=== PATIENT | male | born 1965 | race Caucasian/White ===

== ENCOUNTER → 2019-12-18 | Emergency (ER) | payer SELFPAY ==
--- NOTE | 2019-12-18 14:09 | NUR ---
NO ANSWER AT THIS TIME - PATIENT NOT SEEN IN THE RESTROOM, LOBBY, OR OUTSIDE
--- NOTE | 2019-12-18 14:29 | NUR ---
NO ANSWER FROM PATIENT AT THIS TIME; PATIENT NOT IN RESTROOM, LOBBY, OR OUTSIDE
--- OUTSIDE RECORDS SUMMARY | 2019-12-18 15:14 | XMS REPORT | Continuity of Care Document ---
Author Author [facility] t Organization [facility] Address [address] [place] [address] Phone Unavailable Care Team Providers Care Convalescent Sitter Name Role Phone Unavailable Unavailable Payers Payer Name Policy Type Policy Number Effective Date Expiration Date S ource Problems This patient has no known problems. Allergies, Adverse Reactions, Alerts Allergy Name Allergy Type Status Severity Reaction(s) Onset Date Inacti ve Date Treating Clinician Comments Source penicillin G DA Active SV 2014-08-12 00:00:[address] [facility] Medications This patient has no known medications. Procedures This patient has no known procedures. Results Test Description Test Time Test Comments Results Result Comments Source - XR CHEST 1 V 2019-12-18 14:47:00 Name: MANPREET LINDSAY [facility] : 1965 Age/S:54 /M [address] [facility] Unit#:[id number] Loc: EDDIE Wallsbertha Silvestre x [address] Phys: Jadon Rod MD Dis Date: PHONE #: [phone] Status: PRE ER FAX #: [phone] Exam Date: 12/18/2019 Reason: SOB EXAMS: CPT CODE: [id number] XR CHEST 1 V 06691 HISTORY: Shortness of breath. COMPARISON: None available. Location: [facility]. Diffuse nodular bilateral alveolar infiltrates, greater on the right. No effusion or congestion. Cardiac silhouette is mildly enlarged. IMPRESSION: Diffuse bilateral nodular alveolar infiltrates, greater on the right. at 1447 Reported and signed by: Pedro Ayala M.D. CC: Jadon Rod MD Technologist: Олег Booth RT(R)(CT) Trnscrpt Data: 12/18/2019 (1444) [email or web address] PAGE 1 Signed Report
== END | disposition left against medical advice (07) ==
LOC: ER 15:11
DX: R06.02 Shortness of breath (principal)

== ENCOUNTER 2022-03-20 10:57 | Observation (INO) | payer OTHER ==
[~2022-03-20] VITALS: Ht 190.5 cm; Wt 120.2 kg
[2022-03-20] MEDS ORDERED: ONDANSETRON HCL INJ 2MG/ML 2ML 2 MG/ML VIAL IV STA (11:15)
[2022-03-20] MEDS ORDERED: Morphine 4mg INJECTION 4 MG/ML INJ IV ONE (11:15)
[2022-03-20] MEDS ORDERED: ASPIRIN 81 MG CHEW TAB PO ONE ×2 (11:15→12:30)
[2022-03-20] MEDS ORDERED: ALBUTEROL SULF 0.083% NEB SOLN 3 ML NEB NEB STA (11:19)
[2022-03-20] MEDS ORDERED: GUAIFENESIN/CODEINE 5 ML LIQD PO PRN ×2 (11:30→12:30)
[2022-03-20 11:39] LABS: BASOPHILS % 0.5 % (0.0-1.0); EOSINOPHILS # (AUTO) 0.3 (0.0-0.4); EOSINOPHILS % 4.1 % (0.0-6.0); HEMATOCRIT 45.9 % (38.2-49.6); HEMOGLOBIN 14.4 g/dL (14.0-18.0); LYMPHOCYTES # (AUTO) 2.4 (1.0-3.2); LYMPHOCYTES % 32.1 % (18.0-39.1); MEAN CORPUSCULAR HEMOGLOBIN 33.1 pg (28-32); MEAN CORPUSCULAR HGB CONC 31.4 g/dL (31-35); MEAN CORPUSCULAR VOLUME 105.5 fL (81-99); MONOCYTES # (AUTO) 0.9 (0.2-0.8); MONOCYTES % 11.8 % (4.4-11.3); NEUTROPHILS # (AUTO) 3.8 (2.1-6.9); NEUTROPHILS % 51.2 % (38.7-80.0); PLATELET COUNT 223 x10e3/uL (140-360); RED BLOOD COUNT 4.35 x10e6/uL (4.3-5.7); RED CELL DISTRIBUTION WIDTH 11.5 % (11.7-14.4)
[2022-03-20 12:06] LABS: ALANINE AMINOTRANSFERASE 45 IU/L (0-55); ALBUMIN 3.7 g/dL (3.5-5.0); ALBUMIN/GLOBULIN RATIO 1.3 (0.8-2.0); ALKALINE PHOSPHATASE 67 IU/L (40-150); ANION GAP 14.3 mmol/L (8-16); BLOOD UREA NITROGEN 14 mg/dL (7-26); BUN/CREATININE RATIO 17 (6-25); CALCIUM 9.4 mg/dL (8.4-10.2); CARBON DIOXIDE 23 mmol/L (22-29); CHLORIDE 107 mmol/L (98-107); CREATINE KINASE 77 IU/L (30-200); CREATININE, SERUM 0.82 mg/dL (0.72-1.25); GLUCOSE 107 mg/dL (74-118); POTASSIUM 4.3 mmol/L (3.5-5.1); SODIUM 140 mmol/L (136-145)
[2022-03-20] MEDS ORDERED: ONDANSETRON HCL INJ 2MG/ML 2ML 2 MG/ML VIAL IV PRN (12:30)
[2022-03-20] MEDS ORDERED: SODIUM CHLORIDE FLUSH 10 ML SYR INJ PRN (12:30)
[2022-03-20] MEDS ORDERED: FUROSEMIDE INJ 10 MG/ML 2 ML VIAL IV ONE (12:30)
[2022-03-20 13:30] VITALS: BP 134/74
[2022-03-20] MEDS: ALBUTEROL SULF 0.083% NEB SOLN 3 ML NEB NEB SCH ×3 (14:15→23:00)
[2022-03-20] MEDS ORDERED: FUROSEMIDE40 MG PO (14:30)
[2022-03-20] MEDS ORDERED: MULTIVITAMIN1 EACH PO (14:30)
[2022-03-20] MEDS ORDERED: LISINOPRIL10 MG PO (14:30)
[2022-03-20] MEDS ORDERED: ATORVASTATIN CA20 MG PO (14:30)
[2022-03-20] MEDS ORDERED: BUMETANIDE1 MG PO (14:30)
[2022-03-20] MEDS ORDERED: ASPIRIN EC81 MG PO (14:30)
[2022-03-20] MEDS ORDERED: METOPROLOL SUCC50 MG PO (14:30)
[2022-03-20] MEDS ORDERED: POTASSIUM CHLO10 ME1 PO (14:30)
[2022-03-20 19:56] LABS: CREATINE KINASE MB 2.3 ng/mL (0-5.0)
[2022-03-20 20:00] VITALS: BP 121/73
[2022-03-20] MEDS: ACETAMINOPHEN 325 MG TAB PO PRN (20:00)
[2022-03-20] MEDS: FUROSEMIDE INJ 10 MG/ML 4 ML VIAL IV SCH (20:00)
[2022-03-20] MEDS ORDERED: ATORVASTATIN 40 MG TAB PO SCH (21:00)
[2022-03-21] VITALS: BP 105/67
[2022-03-21] MEDS: ALBUTEROL SULF 0.083% NEB SOLN 3 ML NEB NEB SCH ×2 (03:00→07:00)
[2022-03-21 04:00] VITALS: BP 108/74
[2022-03-21] MEDS: ACETAMINOPHEN 325 MG TAB PO PRN (04:43)
[2022-03-21 05:19] VITALS: BP 105/67
[2022-03-21 05:53] LABS: CREATINE KINASE MB 2.2 ng/mL (0-5.0)
[2022-03-21 08:23] VITALS: BP 122/62
[2022-03-21] MEDS ORDERED: METOPROLOL SUCCINATE 50 MG TAB XL PO SCH (09:00)
[2022-03-21] MEDS ORDERED: POTASSIUM CHLORIDE 10MEQ EA PO SCH (09:00)
[2022-03-21] MEDS ORDERED: ASPIRIN 81 MG ENTERIC COATED PO SCH ×2 (09:00)
[2022-03-21] MEDS ORDERED: LISINOPRIL 10 MG TAB PO SCH (09:00)
[2022-03-21] MEDS ORDERED: HYDROCODONE/APAP 7.5MG-325MG 1 EA TAB PO PRN (09:15)
[2022-03-21] MEDS: FUROSEMIDE INJ 10 MG/ML 4 ML VIAL IV SCH (09:30)
== END 2022-03-21 10:20 | disposition left against medical advice (07) ==
LOC: ER 11:10 → ERHOLD 12:24 → MED/SURG 13:17
PROVIDERS: ADMIT Family Medicine; ATTEND Family Medicine
DX: J20.9 Acute bronchitis, unspecified (principal); R07.9 Chest pain, unspecified; I11.0 Hypertensive heart disease with heart failure; I50.23 Acute on chronic systolic (congestive) heart failure; I25.10 Atherosclerotic heart disease of native coronary artery without angina pectoris; I25.2 Old myocardial infarction; E78.5 Hyperlipidemia, unspecified; Z88.0 Allergy status to penicillin; Z20.822 Contact with and (suspected) exposure to COVID-19; Z79.899 Other long term (current) drug therapy; Z95.810 Presence of automatic (implantable) cardiac defibrillator; Z53.29 Procedure and treatment not carried out because of patient's decision for other reasons
CPT/HCPCS: 36415; 71045; 80053; 82550 ×2; 82553 ×2; 83880; 84484 ×2; 85025; 85379; 93005; 94640 ×2; 94799; 99284; G0378 ×2; J0456; J0696; J1940 ×3; J2270; J2405; J7050; U0002